=== PATIENT | male | born 1990 | race Caucasian/White ===

== ENCOUNTER 2023-01-09 00:31 | Day surgery (SDC) | payer BC, SELFPAY ==
[2022-12-29 08:51] VITALS: BMI 27.2
[2023-01-09 06:40] VITALS: BP 120/72; PULSE 60; RESP 18; TEMP 36; O2SAT 99
[2023-01-09] MEDS: LACTATED RINGERS 1,000 ML 150 ML IV CONT (06:43)
--- NOTE | 2023-01-09 07:34 | P.PNAN_ITS ---
Anes - Initial Pre Proc Eval Procedure: Operation Date: 01/09/23 08:00 Proposed Procedures p Colonoscopy - Matheus Rizo MD Date/Time: 01/09/23 07:34 Surgeon: Matheus Rizo MD Pre Op Diagnosis: ulcerative Colitis Patient Data Age: 32 Gender: M Height: 1.8 m Weight: 89.9 kg Last Vital Signs Temp 96.8 F L 01/09/23 06:40 Pulse 60 01/09/23 06:40 Resp 18 01/09/23 06:40 BP 120/72 01/09/23 06:40 Pulse Ox 99 01/09/23 06:40 O2 Del Method Room Air 01/09/23 06:40 Allergies Allergy/AdvReac Type Severity Reaction Status Date / Time No Known Allergies Allergy Verified 01/09/23 06:40 Home Medications Medication Instructions Recorded Confirmed Type escitalopram oxalate 5 mg tablet 5 mg PO DAILY #90 tabs 12/07/22 01/09/23 Rx cetirizine 10 mg tablet (Zyrtec) 10 mg PO DAILY 12/29/22 01/09/23 History Patient hx anesthesia problems: none Family hx anesthesia problems: none Results Review: All pre-operative results and documents have been reviewed as part of the pre- operative evaluation. [facility] Family History Family History Father Heart disease Hypertension Diabetes mellitus Social History Social History Smoking status: Never smoker Alcohol intake: current Alcohol use details: 1-2 drinks monthly Substance use: never Substance use type: does not use Lack of Transportation: No Lack of Food: Never True Current Housing: I Have Housing Concerned About Future Housing: No Difficulty Paying Gas/Electric Bills: No Difficulty Paying for Meds: No Currently Unemployed: No Difficulty w/ Childcare or Family Care: No Living arrangements: with family Occupation/Education: occupation 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 [employer] Gender identity (if verbalized by the patient): Male Sexual Orientation (if Verbalized by the Patient): Straight or Heterosexual Spiritual care concerns: No Agree to blood products: Yes Anes - Eval Final PreProcedure Day of Procedure 01/09/23 07:34 Patient weight: normal Heart: regular rate and rhythm Lungs: clear to auscultation Airway: Mallampati scale class II Neurological: alert and oriented Last oral intake: >/= 8 hours ASA classification: II Emergent: no Anesthetic plan: proceed Anesthesia type and monitoring: general GIVS and standard monitoring Results Review: All pre-operative results and documents have been reviewed as part of the pre- operative evaluation. Informed Consent: The patient's anesthetic plan and its attendant risks and benefits were discussed with the patient/family/POA. Questions were solicited and answers provided to the satisfaction of the patient/family/POA.
--- NOTE | 2023-01-09 07:45 | PM.HPGS ---
History of Present Illness History of Present Illness Consent: Risks, benefits, and alternatives have been discussed and questions answered. Patient agrees to proceed with procedure. Chief complaint: ulcerative Colitis Narrative: Deshaun Verdugo is a 32 year old male here for colonoscopy, diagnosed with mod-severe left sided UC at 17 yo and was symptomatic for 2-3 years, he used briefly steroids and then lialda, had repeat colonoscopy about 3 years afterward and told that was completely normal and on remission, he has not been on any medication since. No new issues since last visit. Review of Systems Constitutional: Constitutional: Denies headache(s) and Denies weakness Eyes: Eyes: Denies blurry vision ENT: Reports Normal hearing present, Denies headache(s) and Denies neck pain Cardiovascular: Cardiovascular: Denies chest pain and Denies dyspnea Respiratory: Respiratory: Denies dyspnea Gastrointestinal: Gastrointestinal: Reports no additional gastrointestinal complaints Genitourinary: Genitourinary: Denies dysuria Musculoskeletal: Musculoskeletal: Denies neck pain Integumentary/Breasts: Skin/Breast: Denies dry skin Neurologic: Reports Normal hearing present, Denies headache(s) and Denies weakness Psychiatric: Psychiatric: Denies anxiety Endocrine: Endocrine: Denies change in body appearance Hematologic/Lymphatic: Hematologic/Lymphatic: Denies easy bleeding Allergic/Immunologic: Allergic/Immunologic: Denies urticaria PMF Family History Family History Father Heart disease Hypertension Diabetes mellitus Social History Social History Smoking status: Never smoker Alcohol intake: current Alcohol use details: 1-2 drinks monthly Substance use: never Substance use type: does not use Lack of Transportation: No Lack of Food: Never True Current Housing: I Have Housing Concerned About Future Housing: No Difficulty Paying Gas/Electric Bills: No Difficulty Paying for Meds: No Currently Unemployed: No Difficulty w/ Childcare or Family Care: No Living arrangements: with family Occupation/Education: occupation 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[employer] Gender identity (if verbalized by the patient): Male Sexual Orientation (if Verbalized by the Patient): Straight or Heterosexual Spiritual care concerns: No Agree to blood products: Yes Meds Home Medications and Allergies Home Medications Medication Instructions Recorded Confirmed Type escitalopram oxalate 5 mg tablet 5 mg PO DAILY #90 tabs 12/07/22 01/09/23 Rx cetirizine 10 mg tablet (Zyrtec) 10 mg PO DAILY 12/29/22 01/09/23 History Allergies Allergy/AdvReac Type Severity Reaction Status Date / Time No Known Allergies Allergy Verified 01/09/23 06:40 Vital Signs Vital Signs - 24 hr 01/09/23 06:40 Temperature 96.8 F L Pulse Rate 60 Respiratory Rate 18 Blood Pressure 120/72 Pulse Oximetry 99 Oxygen Delivery Room Air Exam Const: General: comfortable and no acute distress HENMT: Face/Nose/Sinus: Normal nares present Eyes: General: appearance normal, both eyes and all related structures Neck: Neck: no JVD Resp: Auscultation: clear to auscultation bilaterally Cardio: Rate: regular rate Rhythm: regular rhythm GI: Inspection: non-distended GI Palp: Yes Soft to palpation Skin: General skin exam: normal color Neuro: General: gait normal Speech: normal speech Extrem: General: normal to inspection Psych: Mental Status: mental status grossly normal Assessment and Plan Assessment and plan (1) Ulcerative colitis in remission: Code(s): K51.90 - Ulcerative colitis, unspecified, without complications Status: Acute Assessment and Plan: colonoscopy with random bx asymptomatic
[2023-01-09 08:09] VITALS: BP 106/67; PULSE 74; RESP 23; O2SAT 97
[2023-01-09 08:19] VITALS: BP 107/74; PULSE 65; RESP 16; O2SAT 98
[2023-01-09 08:29] VITALS: BP 117/75; PULSE 63; RESP 18; O2SAT 100
== END 2023-01-09 08:32 | disposition home or self-care (01) ==
PROVIDERS: PCP Family Medicine; Visit Provider Internal Medicine Gastroenterology
PROC: 0DJD8ZZ Inspection of Lower Intestinal Tract, Via Natural or Artificial Opening Endoscopic (ICD-10-PCS; CPT 45378; principal; 2023-01-09 08:00)
DX: K51.90 Ulcerative colitis, unspecified, without complications (principal); K64.8 Other hemorrhoids
CPT/HCPCS: 45380; 88305; J2704; J7120

== ENCOUNTER 2023-03-02 08:53 | Observation (INO) | payer BC, SELFPAY ==
[2023-03-02] VITALS (39 sets, daily range): BP systolic 109–137; BP diastolic 66–91; PULSE 63–96; RESP 10–28; TEMP 36.2–37.2; O2SAT 92–100; BMI 27.9
--- NOTE | ~2023-03-02 | CT_ITS ---
EXAMINATION: CTA chest PE protocol DATE: 03/02/2023 10:57 CDT INDICATION: Chest pain and shortness of breath TECHNIQUE: Computed tomographic angiography (CTA) of the chest was performed with 100 mL Omnipaque-35 0 intravenous contrast. The dose-length product was 442.57 mGy-cm. Maximum intensity projection 3D-re constructions of the aorta and other arteries were constructed by the technologist on a separate work station. COMPARISON: Chest x-ray dated 03/02/2023. FINDINGS: Study is technically adequate. There is pulmonary embolism of right lower lobe segmental an d subsegmental pulmonary arteries. There is contiguous airspace consolidation. There is small right p leural effusion. Heart size is normal. There are nonenlarged mediastinal lymph nodes, likely reactive . No suspicious pulmonary nodules or masses. No pneumothorax. No endobronchial lesions. No acute osse ous abnormality. No focal lytic or blastic lesions. IMPRESSION: 1. Pulmonary embolism right lower lobe segmental and subsegmental pulmonary arteries, small thrombus burden. 2: Right basilar airspace consolidation which may represent a combination of atelectasis and/or pneu monia. 3: Small right pleural effusion with associated pleural thickening. Reviewed, dictated and finalized at location L. IMPRESSION: 1. Pulmonary embolism right lower lobe segmental and subsegmental pulmonary art eries, small thrombus burden. 2: Right basilar airspace consolidation which may represent a combination of a telectasis and/or pneumonia. 3: Small right pleural effusion with associated pleural thickening.
--- NOTE | ~2023-03-02 | US_ITS ---
Limited Abdominal Sonogram: Real-time sonographic imaging of the right upper quadrant was performed. Clinical History: Elevated bilirubin Findings: The liver appears normal with no evidence of bile duct dilatation. There is a 2.4 x 1.5 x 2.4 cm hyperechoic mass in the right hepatic lobe. Main portal vein demonstrates normal direction of flow. The gallbladder is well distended, and appears normal with no evidence of gallstone or wall thi ckening. The common bile duct measures 5 mm. The visualized pancreas, aorta, and IVC are unremarkabl e. Impression: 2.4 x 1.4 x 2.4 cm hyperechoic left hepatic lobe mass, most likely hemangioma, which correlates with subtle lesion seen on prior CT dated 03/02/2023. Reviewed, dictated and finalized at [facility]. Impression: 2.4 x 1.4 x 2.4 cm hyperechoic left hepatic lobe mass, most likely hemangioma, which correlates with subtle lesion seen on prior CT dated 03/02/2023.
--- NOTE | ~2023-03-02 | XR_ITS ---
EXAMINATION: XR chest 2V DATE: 03/02/2023 09:15 INDICATION: Right-sided chest pain, back pain and new onset dyspnea 2 hour duration TECHNIQUE: PA and lateral views of the chest were obtained. COMPARISON: None FINDINGS: Linear discoid atelectasis or scarring at the lateral left lower lung zone. There is a nodular opacit y projecting over the right hemidiaphragm and lower thoracic spine on the lateral projection. No pulm onary edema, pleural effusion or pneumothorax. The cardiomediastinal silhouette is normal. IMPRESSION: 1. Indeterminate nodular opacity projecting over the lower lungs on the lateral projection. Would rec ommend further evaluation with chest CT. Reviewed, dictated and finalized at location A. IMPRESSION: 1. Indeterminate nodular opacity projecting over the lower lungs on the lateral projection. Would recommend further evaluation with chest CT.
--- NOTE | ~2023-03-02 | US_ITS ---
Duplex Sonography of the bilateral lower extremities: Indication: Pulmonary embolus Sagittal and transverse B-mode images as well as color-flow imaging were performed on the right and l eft femoral and popliteal veins. B-mode examination was done without and with compression in the tra nsverse plane. There is good visualization of the bilateral common femoral, proximal profunda femora l, superficial femoral, greater saphenous, and popliteal veins. Normal flow was seen on color-flow im aging. Normal compressibility was demonstrated. Bilateral posterior tibial and peroneal veins are pa tent. Impression: No evidence of deep vein thrombosis involving either lower extremity. Reviewed, dictated and finalized at location M. Impression: No evidence of deep vein thrombosis involving either lower extremit y.
--- NOTE | 2023-03-02 08:58 | ECG_ITS ---
Measurements Intervals [place] Rate: 69 P: 69 [place]: 182 QRS: 71 QRSD: 158 T: 7 QT: 401 QTc: 432 Interpretive Statements SINUS RHYTHM POSSIBLE LEFT ATRIAL ENLARGEMENT [-0.1mV P WAVE IN V1/V2] INDETERMINATE AXIS RIGHT BUNDLE BRANCH BLOCK [120+ ms QRS DURATION, UPRIGHT V1, 40+ ms S IN I/aVL/V4/V5/V6] NO PREVIOUS ECG AVAILABLE FOR COMPARISON Electronically Signed On 03-02-2023 13:32:45 CDT by Paola Harden M.D.
[2023-03-02] MEDS: MORPHINE SULFATE (*CRX) 4 MG/ML INJ IV PUSH ×2 (09:42→14:29)
[2023-03-02 09:45] LABS: Basophils Absolute Auto 0.1 K/mm3 (0.0-0.1); Basophils Percent Auto 0.6 % (0.2-1.2); Eosinophils Absolute Auto 0.1 K/mm3 (0-0.3); Eosinophils Percent Auto 1.3 % (0-4.4); Hematocrit 46.1 % (42.0-52.0); Hemoglobin 15.8 g/dL (14.0-18.0); Immature Granulocyte Absolute 0.04 K/mm3 (0.00-0.031); Immature Granulocyte Percent A 0.4 % (0-0.5); Lymphocytes Percent Auto 22.5 % (18.3-44.2); Mean Corpuscular HGB Conc 34.3 g/dl (32-36); Mean Corpuscular Volume 90.4 fl (80-100); Mean Platelet Volume 8.3 fl (7.4-10.4); Monocytes Absolute Auto 1.2 K/mm3 (0.1-0.6); Monocytes Percent Auto 11.9 % (2.6-8.5); Neutrophils Absolute Auto 6.5 K/mm3 (1.3-6.7); Neutrophils Percent Auto 63.3 % (45.5-73.1); Platelet Count Result 313 k/mm3 (150-375); Red Cell Distribution Width 11.8 % (11.5-14.5); White Blood Count 10.2 K/mm3 (4.5-10.0)
[2023-03-02 09:57] LABS: Partial Thromboplastin Time 27.4 SECONDS (22.3-36.8); Prothrombin Time 13.8 Seconds (11.1-14.7)
[2023-03-02 09:59] LABS: Alanine Aminotransferase 27 U/L (6-50); Albumin Level 4.4 g/dL (3.5-5.1); Alkaline Phosphatase 78 U/L (38-126); Anion Gap 5 mmol/L (8-16); Aspartate Amino Transferase 25 U/L (17-59); Bilirubin,Total 1.6 mg/dL (0.2-1.3); Blood Urea Nitrogen 13 mg/dL (9-20); Calcium 8.7 mg/dL (8.4-10.2); Carbon Dioxide 31 mmol/L (22-30); Chloride 102 mmol/L (98-107); Estimated CRCL calculation 111 ml/min; Estimated Glomerular Filt Rate > 60; Glucose 89 mg/dL (65-110); Potassium 4.4 mmol/L (3.4-5.0); Sodium 138 mmol/L (137-145)
[2023-03-02 10:14] LABS: Troponin I < 0.012 ng/mL (0.000-0.034)
--- NOTE | 2023-03-02 10:17 | ED.SOB ---
HPI - SOB/Dyspnea General Chief Complaint: Shortness of Breath/Dyspnea Stated Complaint: dyspnea Time Seen by Provider: 03/02/23 09:15 History of Present Illness HPI Narrative: Patient is a 32-year-old male who presents ER with right-sided chest pain and shortness of breath. Reports he began having sharp pains in his right chest wall overnight and worsened this morning. [place] like he could not get it deep breath and could only use 1/5 of his lung. No runny nose or sore throat or productive cough. No hemoptysis. No leg swelling or cramping. Patient does report symptoms are worse when he takes a deep breath as well. No alleviating factors. Of note patient recently traveled to [place] 3 weeks ago and came back with COVID-19. No history of clotting disorder in him or family member. Related Data Allergies Allergy/AdvReac Type Severity Reaction Status Date / Time No Known Allergies Allergy Verified 01/09/23 06:40 Review of Systems Review of Systems: All systems reviewed & are unremarkable except as noted in HPI and below Constitutional: Constitutional: Denies chills and Denies fever(s) ENT: Denies nasal congestion and Denies sore throat Cardiovascular: Cardiovascular: Reports chest pain, Denies rapid heart rate and Denies radiating jaw, neck or arm pain Respiratory: Respiratory: Denies cough, Reports dyspnea and Denies wheezing Gastrointestinal: Gastrointestinal: Denies abdominal pain, Denies nausea and Denies vomiting Musculoskeletal: Musculoskeletal: Denies back pain, Denies myalgias, Denies arthralgias and Denies joint swelling PMFSH Past Medical History Medical History (Updated 03/02/23 @ 18:55 by Ahsan Abdalla MD) Anxiety Depression Ulcerative colitis Diagnosed at 17, in remission for at least [address] Rizo on 01/09/2023 showed internal hemorrhoids. Surgical History Surgical History (Updated 03/02/23 @ 15:44 by Joseline Kong PA-C) History of colonoscopy History of hand surgery Repair of right metacarpal fracture. Family History Family History Father Heart disease Hypertension Diabetes mellitus Social History Social History (Updated 03/02/23 @ 14:48 by Joseline Kong PA-C) Social History: Surrogate medical decision maker: Shae Verdugo, spouse. Code status: Full code. Smoking status: Never smoker Alcohol intake: current Drinks per week: 1 Alcohol use details: 1-2 drinks a month. Substance use: never Substance use type: does not use Lack of Transportation: No Lack of Food: Never True Current Housing: Decline to Answer Concerned About Future Housing: Decline to Answer Difficulty Paying Gas/Electric Bills: Decline to Answer Difficulty Paying for Meds: Decline to Answer Currently Unemployed: Decline to Answer Education: Don't Know Difficulty w/ Childcare or Family Care: Decline to Answer Living arrangements: with family Additional living arrangements comments: Lives with family in [place]. 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 Spiritual care concerns: No Agree to blood products: Yes Exam Narrative: GENERAL: Well-appearing, well-nourished, and in no acute distress. HEAD: Normocephalic, atraumatic. ENT: Mucous membranes moist. NECK: Supple. CHEST: Clear to auscultation. No respiratory distress. Visibly uncomfortable with deep breaths. HEART: Regular rate and rhythm. Normal peripheral pulses. ABDOMEN: Soft, nontender, nondistended. EXTREMITIES: Normal range of motion. No edema. SKIN: Warm, dry, no rash. NEURO: Alert and oriented x3. PSYCH: Normal mood and affect. Course Course Emergency Course: Patient educated on diagnosis and treatment plan. Admit to the hospitalist service. Placed on IV heparin. Patient felt to have atelectasis over pneumonia given no history of recent fe
[2023-03-02] MEDS: HEPARIN SODIUM 5,000 UNITS/ML VIAL 7500 UNITS IV PUSH (11:58)
[2023-03-02] MEDS: HEPARIN SOD/D5W 100 UNITS/ML 25,000 UNITS/250 ML BAG 15 UNITS IV CONT (11:59)
[2023-03-02] MEDS: HYDROcodone/acetaminophen (*CRX) 5-325 MG TABLET 1 TAB PO (13:45)
--- NOTE | 2023-03-02 14:18 | ADMGEN ---
This patient, Deshaun Verdugo, was admitted to Medical Room 345-01. Patient/family oriented to hospital policies and general routines including ID bracelet, bed and alarms, visiting hours, pain management, procedures, bathroom and other care routines, personal items, smoking policy, room service/diet, and visiting hours. Information on how to activate the Rapid Response Team has been discussed. Patient/Family are encouraged to report perceived risks to care and to ask questions if they do not understand what they are told or what they should do.
[2023-03-02] MEDS: ALBUTEROL SULFATE NEB 2.5 MG/3 ML INH (14:21)
[2023-03-02] MEDS: ONDANSETRON INJ 4 MG/2 ML VIAL IV PUSH (14:36)
--- NOTE | 2023-03-02 14:42 | PM.IMHP ---
H&P: HPI History of Present Illness Date/Time: 03/02/23 14:45 Chief Complaint: Shortness of breath. Narrative: This is a very pleasant 32-year-old male with history of ulcerative colitis, kidney stones, depression, and anxiety who presented to the emergency department via private vehicle from home for evaluation of shortness of breath. The patient provides the following history. Yesterday afternoon he lay down to take a nap with his daughter and upon waking he had discomfort on the right side of his chest, side, and mid to low back which he presumed was a muscle strain from how he was sleeping. He took ibuprofen which did not seem to help much. He did not sleep well, presumably due to the pain, and when he got up at 07:00 he reports the sudden onset shortness of breath associated with sharp and stabbing pain in the right lower ribs. CTA of the chest showed pulmonary emboli in the right lower lobe segmental and subsegmental pulmonary arteries with a small thrombus burden. Lower extremity venous Doppler ultrasounds were negative for DVT. With further questioning, he and his family traveled to [place] about 4 weeks ago where they went on a cruise. Shortly after returning home he had COVID but those symptoms have resolved. He has no personal history and to his knowledge no family history of venous thromboembolism although he does not know his mother's family history. In the ED he received a dose of morphine which helped the pain somewhat. He was started on heparin drip and is being admitted to the floor for further care. Shortly after arriving to the floor his pain intensified (rated 8-9/10) and he had associated nausea and sweats. He feels as though he cannot take in a deep breath and he is splinting to avoid pain on exam. He says this pain is worse than that he has experienced with kidney stones. Review of Systems Review of Systems: Twelve systems were reviewed. He had COVID about 3 weeks ago but has recuperated from that. Reports mild lightheadedness and dizziness with the onset of shortness of breath this morning. No exertional chest pain. He had some nausea with severe pleuritic pain as detailed above. No vomiting or diarrhea. He has not noticed any lower extremity edema, calf pain, or tenderness. He has been in remission from his ulcerative colitis for over 8 years and a surveillance colonoscopy in January 2023 was unremarkable aside for small internal hemorrhoids. He denies easy bruising and bleeding. Except as documented, all other systems were reviewed and are negative. [facility] Past Medical History Medical History (Updated 03/02/23 @ 15:47 by Joseline Kong PA-C) Anxiety Depression Ulcerative colitis Diagnosed at 17, in remission for at least [address] Rizo on 01/09/2023 showed internal hemorrhoids. Surgical History Surgical History (Updated 03/02/23 @ 15:44 by Joseline Kong PA-C) History of colonoscopy History of hand surgery Repair of right metacarpal fracture. Family History Family History Father Heart disease Hypertension Diabetes mellitus Social History Social History (Updated 03/02/23 @ 14:48 by Joseline Kong PA-C) Social History: Surrogate medical decision maker: Shae Kartik, spouse. Code status: Full code. Smoking status: Never smoker Alcohol intake: current Drinks per week: 1 Alcohol use details: 1-2 drinks a month. Substance use: never Substance use type: does not use Lack of Transportation: No Lack of Food: Never True Current Housing: Decline to Answer Concerned About Future Housing: Decline to Answer Difficulty Paying Gas/Electric Bills: Decline to Answer Difficulty Paying for Meds: Decline to Answer Currently Unemployed: Decline to Answer Education: Don't Know Difficulty w/ Childcare or Family Care: Decline to Answer Living arrangements: with family Additional living arrangements
[2023-03-02] MEDS: ALPRAZolam (*CRX) 0.25 MG TABLET PO ×2 (15:08→21:26)
[2023-03-02] MEDS: KETOROLAC 15 MG/ML VIAL (*BKC) IV PUSH (15:58)
[2023-03-02 18:15] LABS: Partial Thromboplastin Time 73.1 SECONDS (22.3-36.8)
[2023-03-02] MEDS: MORPHINE SULFATE (*CRX) 4 MG/ML INJ 2 MG IV PUSH (20:36)
[2023-03-02] MEDS: KETOROLAC 30 MG/ML VIAL (*BKC) IV PUSH (21:26)
[2023-03-03] VITALS (10 sets, daily range): BP systolic 115–131; BP diastolic 65–77; PULSE 74–95; RESP 16–20; TEMP 36.3–37.2; O2SAT 93–97
--- NOTE | 2023-03-03 | ECHO_ITS ---
Patient Info Name: Deshaun Verdugo Age: 32 years : 1990 Gender: Male Ht: 71 in Wt: 200 lbs BSA: 2.15 m2 HR: 85 bpm BP: 120 / 70 mmHg Heart Rhythm: Sinus Rhythm Technical Quality: Fair Exam Date: 03/03/2023 10:32 AM Exam Location: [facility] Pulmonary Patient Status: Inpatient Admit Date: 03/02/2023 Staff Ordering Physician: Joseline Kong PA-C Molding Machine Operator: Agnes Velazquez RDCS Attending Provider: Joselin Moreno MD Referring Physician: Dilan ANDERSON; Exam Type: CA echo doppler color flow Study Info Indications - PE Complete two-dimensional, color flow and Doppler transthoracic echocardiogram is performed. Summary 1. Complete two-dimensional, color flow and Doppler transthoracic echocardiogram is performed. 2. Left ventricular chamber dimension is normal. 3. Left ventricular systolic function is normal, estimated at 60-65%. 4. The left ventricular diastolic function is grade I diastolic dysfunction. 5. E/e' 8 is minimally elevated. 6. There is trace tricuspid valve regurgitation. 7. No pulmonary hypertension, estimated pulmonary arterial systolic pressure is 38 mmHg. 8. There is trace pulmonic regurgitation. Left Ventricle E/e' 8 is minimally elevated. Left ventricular chamber dimension is normal. Left ventricular systolic function is normal, estimated at 60-65%. The left ventricular diastolic function is grade I diastolic dysfunction. Right Ventricle Right ventricular systolic function is normal and with normal TAPSE 2.7 cm. Right ventricular chamber dimension is normal. Left Atria Left atrial chamber dimension is normal. Right Atria Right atrial chamber dimension is normal. Aortic Valve The aortic valve is trileaflet. There is no aortic valve stenosis. There is no aortic valve regurgitation. Pulmonic Valve There is trace pulmonic regurgitation. Mitral Valve There is no mitral valve stenosis. There is no mitral valve regurgitation. Tricuspid Valve There is trace tricuspid valve regurgitation. No pulmonary hypertension, estimated pulmonary arterial systolic pressure is 38 mmHg. Pericardium/Pleural There is no pericardial effusion. Inferior Vena Cava Normal inferior vena cava with >50% collapse upon inspiration consistent with normal right atrial pressure, 5 mmHg. Aorta The aortic root size at the sinus of Valsalva is normal. Left Ventricular Outflow Tract Name Value Normal LVOT 2D LVOT Diameter 2.0 cm LVOT Doppler LVOT Peak Gradient 6 mmHg LVOT Mean Gradient 3 mmHg LVOT VTI 20 cm LVOT VTI/AV VTI Ratio 0.9 LVOT Stroke Volume 64 ml LVOT CO 6.4 l/min LVOT CI 3.0 l/min/m2 Pulmonic Valve Name Value Normal RVOT Doppler RVOT Peak Gradient 3 mmHg PV Doppler -----
[2023-03-03 00:48] LABS: Partial Thromboplastin Time 76.8 SECONDS (22.3-36.8)
[2023-03-03] MEDS: HEPARIN SOD/D5W 100 UNITS/ML 25,000 UNITS/250 ML BAG 15 UNITS IV CONT (02:30)
[2023-03-03] MEDS: HYDROcodone/acetaminophen (*CRX) 5-325 MG TABLET 1 TAB PO (05:44)
[2023-03-03 07:20] LABS: Basophils Percent Auto 0.4 % (0.2-1.2); Eosinophils Absolute Auto 0.1 K/mm3 (0-0.3); Hematocrit 39.8 % (42.0-52.0); Hemoglobin 13.7 g/dL (14.0-18.0); Immature Granulocyte Absolute 0.04 K/mm3 (0.00-0.031); Immature Granulocyte Percent A 0.4 % (0-0.5); Lymphocytes Absolute Auto 1.89 K/mm3 (0.9-3.2); Lymphocytes Percent Auto 19.8 % (18.3-44.2); Mean Corpuscular HGB Conc 34.4 g/dl (32-36); Mean Corpuscular Hemoglobin 31.3 pg (26-34); Mean Corpuscular Volume 90.9 fl (80-100); Mean Platelet Volume 8.6 fl (7.4-10.4); Monocytes Percent Auto 10.1 % (2.6-8.5); Neutrophils Absolute Auto 6.5 K/mm3 (1.3-6.7); Neutrophils Percent Auto 68.3 % (45.5-73.1); Platelet Count Result 289 k/mm3 (150-375); Red Blood Count 4.38 M/mm3 (4.6-6.20); Red Cell Distribution Width 11.7 % (11.5-14.5); White Blood Count 9.5 K/mm3 (4.5-10.0)
[2023-03-03] MEDS: MORPHINE SULFATE (*CRX) 4 MG/ML INJ 2 MG IV PUSH ×3 (07:24→23:40)
[2023-03-03 07:29] LABS: Anion Gap 5 mmol/L (8-16); Blood Urea Nitrogen 14 mg/dL (9-20); Calcium 8.5 mg/dL (8.4-10.2); Carbon Dioxide 30 mmol/L (22-30); Chloride 100 mmol/L (98-107); Estimated CRCL calculation 108 ml/min; Estimated Glomerular Filt Rate > 60; Glucose 119 mg/dL (65-110); Potassium 3.8 mmol/L (3.4-5.0); Sodium 135 mmol/L (137-145)
[2023-03-03 07:32] LABS: Partial Thromboplastin Time 77.3 SECONDS (22.3-36.8)
[2023-03-03] MEDS: ESCITALOPRAM OXALATE 5 MG TABLET PO (09:08)
--- NOTE | 2023-03-03 15:45 | PM.IMPN ---
Progress Note: A&P Assessment and Plan (1) Pulmonary emboli: Code(s): I26.99 - Other pulmonary embolism without acute cor pulmonale Status: Acute Assessment and Plan: The patient presented to the emergency department today for evaluation of acute onset shortness of breath this morning in addition to right-sided discomfort since yesterday afternoon as per HPI. CTA of the chest showed pulmonary embolism in the right lower lobe segmental and subsegmental pulmonary arteries with a small thrombus burden. right basilar airspace consolidation which is likely atelectasis as he is noted to be taking shallow breaths and splinting due to the pain. Risk factors include recent [place] and COVID infection, both within the last 4 weeks. Discussed the importance of taking the breasts and sent of spirometry has been ordered. He is currently on heparin drip that will be transitioned to Eliquis. Care coordination consulted to preauthorize Eliquis Patient's of requiring IV pain control and discussed trying to wean off of this and transition to oral analgesics. Bilateral lower extremity ultrasound negative for DVT Echocardiogram revealing EF of 60 65%, grade 1 diastolic dysfunction and no pulmonary hypertension (2) Atelectasis: Code(s): J98.11 - Atelectasis Status: Acute Assessment and Plan: Likely due to shallow breathing. Patient given incentive spirometry. (3) Ulcerative colitis in remission: Code(s): K51.90 - Ulcerative colitis, unspecified, without complications Status: Chronic Assessment and Plan: Has been in remission for 8 years Subjective Date/time seen: 03/03/23 15:45 Interval history: Patient sitting up in bed with at bedside. Patient is moaning in pain and states that he cannot move 1 muscle without an excruciating amount of pain. He stated that he was doing just fine prior to his echocardiogram when he had a rollover only on his side he could hardly bear the amount of pain he was in in needed morphine immediately. Patient has constant 3/10 pain in his right lower chest and then sharp 10/10 pains in his low back and collar bone when he moves. Patient states he would not be able to undergo any more imaging due to being unable to move. He does have a history of kidney stones. Agreed to test his urine to see if possibly he has a kidney stone causing his low back pain. I suspect that his pain is from his PE but will investigate other avenues of pain. Review of Systems Review of Systems: All systems reviewed & are unremarkable except as noted in HPI and below Exam Narrative: GENERAL: Uncomfortable HENMT: moist mucous membranes EYES: EOM intact b/l NECK: no lymphadenopathy RESPIRATORY: Deferred due to being in too much pain to move CARDIO: RRR GI: soft, nontender, bowel sounds present SKIN: no rashes EXTREMITIES: no edema, redness or tenderness Objective Data Vital Signs Vital Signs: Vital Signs - 24 hr 03/02/23 16:00 03/02/23 20:07 03/02/23 20:00 Temperature 99.0 F Pulse Rate 86 89 Respiratory Rate 20 Blood Pressure 115/66 Pulse Oximetry 92 Oxygen Delivery Room Air 03/02/23 20:00 03/03/23 00:00 03/03/23 04:00 Temperature Pulse Rate 92 77 74 Respiratory Rate Blood Pressure Pulse Oximetry Oxygen Delivery 03/03/23 06:00 03/03/23 08:00 03/03/23 11:30 Temperature 98.9 F Pulse Rate 85 82 Respiratory Rate 20 Blood Pressure 120/70 Pulse Oximetry 93 97 Oxygen Delivery Room Air 03/03/23 12:00 Temperature Pulse Rate 82 Respiratory Rate Blood Pressure Pulse Oximetry Oxygen Delivery Intake/Output Intake/Output: Intake & Output 02/28/23 03/01/23 03/02/23 03/03/23 23:59 23:59 23:59 23:59 Intake Total 480 1230 Output Total 500 Balance 480 730 Meds/Results Medications: Active Medications Generic Name Dose Route Start Last Admin Trade Name Eduardoq [place]
[2023-03-03] MEDS: ACETAMINOPHEN 325 MG TABLET 650 MG PO ×2 (17:04→23:39)
[2023-03-03 17:29] LABS: Appearance Urine Clear (Clear); Bilirubin Urine Negative (Negative); Blood Urine Negative (Negative); Color Urine Yellow (Yellow); Glucose Urine UA Negative (Negative); Ketones Urine Negative (Negative); Leukocyte Esterase Ur Negative LEU/UL (Negative); Nitrate Urine Negative (Negative); Protein Urine Negative (Negative); Specific Grav Ur 1.011 (1.001-1.035); Urobilinogen Urine 0.2 mg/dL (<2.0); pH Urine 5.5 (5.0-9.0)
[2023-03-03 17:31] LABS: Add Urine Microscopic? NO
[2023-03-03] MEDS: APIXABAN 5 MG TABLET 10 MG PO (22:02)
[2023-03-04] VITALS (9 sets, daily range): BP systolic 123–125; BP diastolic 66–74; PULSE 79–100; RESP 13–18; TEMP 36.1–37.1; O2SAT 95–96
[2023-03-04 06:23] LABS: Basophils Percent Auto 0.3 % (0.2-1.2); Eosinophils Absolute Auto 0.1 K/mm3 (0-0.3); Eosinophils Percent Auto 1.4 % (0-4.4); Hematocrit 41.9 % (42.0-52.0); Hemoglobin 14.1 g/dL (14.0-18.0); Immature Granulocyte Absolute 0.08 K/mm3 (0.00-0.031); Immature Granulocyte Percent A 0.8 % (0-0.5); Lymphocytes Percent Auto 18.6 % (18.3-44.2); Mean Corpuscular HGB Conc 33.7 g/dl (32-36); Mean Corpuscular Volume 92.1 fl (80-100); Mean Platelet Volume 8.7 fl (7.4-10.4); Neutrophils Absolute Auto 7.1 K/mm3 (1.3-6.7); Neutrophils Percent Auto 68.9 % (45.5-73.1); Platelet Count Result 291 k/mm3 (150-375); Red Blood Count 4.55 M/mm3 (4.6-6.20); Red Cell Distribution Width 11.4 % (11.5-14.5); White Blood Count 10.2 K/mm3 (4.5-10.0)
[2023-03-04 06:35] LABS: Alanine Aminotransferase 46 U/L (6-50); Albumin Level 3.9 g/dL (3.5-5.1); Alkaline Phosphatase 85 U/L (38-126); Anion Gap 2 mmol/L (8-16); Aspartate Amino Transferase 30 U/L (17-59); Bilirubin,Total 1.8 mg/dL (0.2-1.3); Blood Urea Nitrogen 9 mg/dL (9-20); Calcium 8.5 mg/dL (8.4-10.2); Carbon Dioxide 32 mmol/L (22-30); Chloride 104 mmol/L (98-107); Estimated CRCL calculation 108 ml/min; Estimated Glomerular Filt Rate > 60; Glucose 102 mg/dL (65-110); Potassium 4.3 mmol/L (3.4-5.0); Sodium 138 mmol/L (137-145)
[2023-03-04] MEDS: ACETAMINOPHEN 325 MG TABLET 650 MG PO ×3 (06:44→17:01)
[2023-03-04] MEDS: APIXABAN 5 MG TABLET 10 MG PO ×2 (08:13→22:21)
[2023-03-04] MEDS: ESCITALOPRAM OXALATE 5 MG TABLET PO (08:14)
[2023-03-04] MEDS: CYCLOBENZAPRINE HCL 10 MG TABLET PO ×2 (13:06→22:21)
--- NOTE | 2023-03-04 13:58 | PM.IMPN ---
Progress Note: A&P Assessment and Plan (1) Pulmonary emboli: Code(s): I26.99 - Other pulmonary embolism without acute cor pulmonale Status: Acute Assessment and Plan: The patient presented to the emergency department today for evaluation of acute onset shortness of breath this morning in addition to right-sided discomfort since yesterday afternoon as per HPI. CTA of the chest showed pulmonary embolism in the right lower lobe segmental and subsegmental pulmonary arteries with a small thrombus burden. right basilar airspace consolidation which is likely atelectasis as he is noted to be taking shallow breaths and splinting due to the pain. Risk factors include recent [place] and COVID infection, both within the last 4 weeks. Discussed the importance of taking deep breaths and sent of spirometry has been ordered. He is currently on heparin drip that will be transitioned to Eliquis. Care coordination consulted to preauthorize Eliquis Patient's of requiring IV pain control and discussed trying to wean off of this and transition to oral analgesics. Bilateral lower extremity ultrasound negative for DVT Echocardiogram revealing EF of 60 65%, grade 1 diastolic dysfunction and no pulmonary hypertension (2) Atelectasis: Code(s): J98.11 - Atelectasis Status: Acute Assessment and Plan: Likely due to shallow breathing. Patient given incentive spirometry. (3) Ulcerative colitis in remission: Code(s): K51.90 - Ulcerative colitis, unspecified, without complications Status: Chronic Assessment and Plan: Has been in remission for 8 years Subjective Date/time seen: 03/04/23 13:58 Interval history: Patient states that he is still in a significant amount of pain. Patient describes his pain as starting just above his hip on the right side. He describes it as a spasm and stabbing pain. He denies pain shooting down his leg. A lot of his symptoms appear to be muscular. He does have point tenderness. Advice starting Flexeril and he was okay with this. Got a call from the nurse later in the day and stated that the patient is pain free after taking the Flexeril and is doing much much better. Review of Systems Review of Systems: All systems reviewed & are unremarkable except as noted in HPI and below Exam Narrative: GENERAL: Uncomfortable HENMT: moist mucous membranes EYES: EOM intact b/l NECK: no lymphadenopathy RESPIRATORY: Clear auscultation CARDIO: RRR GI: soft, nontender, bowel sounds present SKIN: no rashes EXTREMITIES: no edema, redness or tenderness Objective Data Vital Signs Vital Signs: Vital Signs - 24 hr 03/03/23 16:00 03/03/23 14:00 03/03/23 20:00 Temperature 97.4 F L Pulse Rate 94 95 91 Respiratory Rate 16 Blood Pressure 131/77 Pulse Oximetry 97 Oxygen Delivery Fraction of Inspired Oxygen 03/03/23 20:00 03/03/23 22:00 03/04/23 00:00 Temperature 97.9 F Pulse Rate 91 79 Respiratory Rate 18 Blood Pressure 115/65 Pulse Oximetry 96 Oxygen Delivery Room Air Fraction of Inspired Oxygen 03/04/23 04:00 03/04/23 06:00 03/04/23 08:00 Temperature 97.0 F L Pulse Rate 81 94 89 Respiratory Rate 18 Blood Pressure 123/73 Pulse Oximetry 95 Oxygen Delivery Fraction of Inspired Oxygen 03/04/23 08:00 03/04/23 12:00 Temperature Pulse Rate 93 Respiratory Rate Blood Pressure Pulse Oximetry 95 Oxygen Delivery Fraction of Inspired Oxygen 0.21 Intake/Output Intake/Output: Intake & Output 03/01/23 03/02/23 03/03/23 03/04/23 23:59 23:59 23:59 23:59 Intake Total 480 1730 1790 Output Total 2600 550 Balance 480 -870 1240 Meds/Results Medications: Active Medications Generic Name Dose Route Start Last Admin Trade Name Freq PRN Reason Stop Dose Admin Acetaminophen 650 mg 03/03/23 18:00 03/04/23 12:00 Acetaminophen 325 Mg Tablet PO 650 mg
[2023-03-04] MEDS: HYDROcodone/acetaminophen (*CRX) 5-325 MG TABLET 1 TAB PO (18:02)
--- NOTE | 2023-03-04 21:27 | PC.NURSE ---
Eliquis care notes provided to patient. All questions and concerns addressed at this time.
[2023-03-05] VITALS: PULSE 76
[2023-03-05 04:00] VITALS: PULSE 72
[2023-03-05] MEDS: CYCLOBENZAPRINE HCL 10 MG TABLET PO (05:54)
[2023-03-05] MEDS: ACETAMINOPHEN 325 MG TABLET 650 MG PO (05:56)
[2023-03-05 05:59] VITALS: BP 115/73; PULSE 73; RESP 14; TEMP 36.1; O2SAT 95
[2023-03-05 06:30] LABS: Basophils Absolute Auto 0.1 K/mm3 (0.0-0.1); Basophils Percent Auto 0.4 % (0.2-1.2); Eosinophils Absolute Auto 0.2 K/mm3 (0-0.3); Eosinophils Percent Auto 1.4 % (0-4.4); Hematocrit 43.2 % (42.0-52.0); Hemoglobin 14.4 g/dL (14.0-18.0); Immature Granulocyte Absolute 0.05 K/mm3 (0.00-0.031); Immature Granulocyte Percent A 0.4 % (0-0.5); Lymphocytes Absolute Auto 1.85 K/mm3 (0.9-3.2); Mean Corpuscular HGB Conc 33.3 g/dl (32-36); Mean Corpuscular Hemoglobin 30.6 pg (26-34); Mean Corpuscular Volume 91.9 fl (80-100); Mean Platelet Volume 8.6 fl (7.4-10.4); Monocytes Absolute Auto 0.9 K/mm3 (0.1-0.6); Monocytes Percent Auto 8.1 % (2.6-8.5); Neutrophils Absolute Auto 8.5 K/mm3 (1.3-6.7); Neutrophils Percent Auto 73.7 % (45.5-73.1); Platelet Count Result 331 k/mm3 (150-375); Red Cell Distribution Width 11.4 % (11.5-14.5); White Blood Count 11.6 K/mm3 (4.5-10.0)
[2023-03-05 06:39] LABS: Alanine Aminotransferase 47 U/L (6-50); Albumin Level 3.8 g/dL (3.5-5.1); Alkaline Phosphatase 96 U/L (38-126); Anion Gap 5 mmol/L (8-16); Aspartate Amino Transferase 25 U/L (17-59); Bilirubin,Total 1.2 mg/dL (0.2-1.3); Blood Urea Nitrogen 11 mg/dL (9-20); Carbon Dioxide 32 mmol/L (22-30); Chloride 101 mmol/L (98-107); Estimated CRCL calculation 98 ml/min; Estimated Glomerular Filt Rate > 60; Glucose 105 mg/dL (65-110); Potassium 4.1 mmol/L (3.4-5.0); Sodium 138 mmol/L (137-145)
[2023-03-05] MEDS: APIXABAN 5 MG TABLET 10 MG PO (07:55)
[2023-03-05] MEDS: ESCITALOPRAM OXALATE 5 MG TABLET PO (07:55)
[2023-03-05 08:00] VITALS: PULSE 69
--- NOTE | 2023-03-05 11:54 | PM.DS ---
DS: Admitting Diagnosis Discharge Date 03/05/23 Admitting Diagnosis Pulmonary emboli DS: Discharge Diagnosis Discharge Diagnosis (1) Pulmonary emboli: Code(s): I26.99 - Other pulmonary embolism without acute cor pulmonale Status: Acute Assessment and Plan: The patient presented to the emergency department today for evaluation of acute onset shortness of breath this morning in addition to right-sided discomfort since yesterday afternoon as per HPI. CTA of the chest showed pulmonary embolism in the right lower lobe segmental and subsegmental pulmonary arteries with a small thrombus burden. right basilar airspace consolidation which is likely atelectasis as he is noted to be taking shallow breaths and splinting due to the pain. Risk factors include recent [place] and COVID infection, both within the last 4 weeks. Discussed the importance of taking deep breaths and sent of spirometry has been ordered. He is currently on heparin drip that will be transitioned to Eliquis. Care coordination consulted to preauthorize Eliquis oral analgesics. Bilateral lower extremity ultrasound negative for DVT Echocardiogram revealing EF of 60 65%, grade 1 diastolic dysfunction and no pulmonary hypertension (2) Atelectasis: Code(s): J98.11 - Atelectasis Status: Acute Assessment and Plan: Likely due to shallow breathing. Patient given incentive spirometry. (3) Ulcerative colitis in remission: Code(s): K51.90 - Ulcerative colitis, unspecified, without complications Status: Chronic Assessment and Plan: Has been in remission for 8 years DS: Summary Hospital Course Hospital Course: This is a 32-year-old male with history of ulcerative colitis that has been in remission for 8 years, kidney stones, depression anxiety presented to the ED on 03/02/2023 for evaluation shortness of breath and chest pain. CT of the chest showed pulmonary emboli in the right lower lobe segmental and subsegmental pulmonary arteries with small thrombus burden. Lower extremity Doppler negative for DVT. Patient did have recent travel to [place] and went on a cruise and was a returned home he developed COVID-19 although the symptoms have since resolved. He was started on heparin drip. Echocardiogram revealed EF of 60 65% with grade 1 diastolic dysfunction. Care coordination consulted for Eliquis. Patient was able to afford cost. He was transitioned to Eliquis from heparin while in the hospital. Patient developed severe back pain that he describes similar to having kidney stones. Patient's urine was checked and negative for RBCs. This back pain continued and patient was unable to do much in and out of bed. Pain resolved without movement. Patient stated that it felt like muscle spasms. Pain was on his right low back just above his hip. Lot of patient's pain appeared to be muscular. Did a trial of Flexeril in this significantly improved patient's symptoms. Patient's labs and vital signs are stable and he is medically clear for discharge. Time Spent with Patient Time attestation: Total time spent providing and/or coordinating discharge services: Exam Narrative: GENERAL: Uncomfortable HENMT: moist mucous membranes EYES: EOM intact b/l NECK: no lymphadenopathy RESPIRATORY: Clear auscultation CARDIO: RRR GI: soft, nontender, bowel sounds present SKIN: no rashes EXTREMITIES: no edema, redness or tenderness DS: Data Data Completed and Pending Labs on day of discharge: Labs from last 24 hours 03/05/23 05:51 WBC 11.6 H RBC 4.70 Hgb 14.4 Hct 43.2 MCV 91.9 MCH 30.6 MCHC 33.3 RDW 11.4 L Plt Count 331 MPV 8.6 Immature Gran % (Auto) 0.4 Neut % (Auto) 73.7 H Lymph % (Auto) 16.0 L [place] % (Auto) 8.1 Eos % (Auto) 1.4 Baso % (Auto) 0.4 Lymph # (Auto) 1.85 [place] # (Auto) 0.9 H Eos # (Auto) 0.2 Baso # (Auto) 0.1 Abs Immat Gran (auto) 0.05 H Absolute N
== END 2023-03-05 12:20 | disposition home or self-care (01) ==
LOC: ANHED 09:50 → ANH3MEDSUR 13:53 → ANH3MED 14:31 → ANH3MEDSUR 03-07 08:35
PROVIDERS: Internal Medicine Critical Care Medicine; Physician Assistant; Admitting Provider Family Medicine; Emergency Provider Emergency Medicine; PCP Family Medicine; Visit Provider Internal Medicine
DX: I26.99 Other pulmonary embolism without acute cor pulmonale (principal); J98.11 Atelectasis; K51.90 Ulcerative colitis, unspecified, without complications; Z86.16 Personal history of COVID-19; J90 Pleural effusion, not elsewhere classified; E80.6 Other disorders of bilirubin metabolism; R16.0 Hepatomegaly, not elsewhere classified; I45.10 Unspecified right bundle-branch block; F41.9 Anxiety disorder, unspecified; F32.A Depression, unspecified; K64.8 Other hemorrhoids; F10.90 Alcohol use, unspecified, uncomplicated
CPT/HCPCS: 36415; 71046; 71275; 76705; 80048; 80053; 81003; 83735; 84484; 85025; 85610; 85730; 93005; 93306; 93970; 94640; 96365; 96366; 96375; 96376; 99285; A9270; G0378; J1644; J1885; J2270; J2405; Q9967

== ENCOUNTER 2023-04-05 09:50 | Outpatient (RCR) | payer BC, SELFPAY ==
--- NOTE | 2023-04-05 10:00 | PDONCCN ---
HPI - Date of Consult Date/Time: 04/05/23 10:00 Requesting Physician: Kasandra Millard MD Primary Care Provider: Jim Rivera, - Consult Narrative Reason for consult: PULMONARY EMBOLISM 03/02/23 POST COVID INFECTION Narrative: Deshaun Verdugo is a 32 year old male who was hospitalized for acute dyspnea on 03/02/23. A CTA chest performed 03/02/23 showed pulmonary embolism in right lower lobe. [place] of clot was noted as small and echocardiogram showed no right heart strain. patient reported COVID 19 infection 3 weeks prior to 03/02/23 admission. Patient was started on Eliquis and remains on eliquis. He is coming here to establish care with hematology and discuss duration of anticoagulation. Patient has ulcerative colitis which is in remission for past 8 years. Review of Systems - Review of Systems Patient states that he feels well. Chest pain and dyspnea has resolved. There is no cough or sputum production. Denies fever, chills, night sweats or weight loss. denies bleeding or bruising. He is back to baseline exercise routine and running/biking few times a week. He denies exercise intolerance. Denies dizziness, headache, falls. No hematochezia, melena or hematuria. No rash. No lymphadenopathy. [facility] Medical History: Medical History (Last Reviewed 03/06/23 @ 12:23 by Tyree Santamaria DO) Anxiety Depression Ulcerative colitis Diagnosed at 17, in remission for at least [address] Rizo on 01/09/2023 showed internal hemorrhoids. Surgical History: Surgical History (Last Reviewed 03/06/23 @ 12:23 by Tyree Santamaria DO) History of colonoscopy History of hand surgery Repair of right metacarpal fracture. Family History: Family History (Last Reviewed 03/06/23 @ 12:23 by Tyree Santamaria DO) Father Heart disease Hypertension Diabetes mellitus - Social History Social History: Social History (Last Reviewed 03/06/23 @ 12:23 by Tyree Santamaria DO) Alcohol Use: Alcohol intake: current Drinks per week: 1 Alcohol use details: 1-2 drinks a month. Substance Use: Substance use: never Substance use type: does not use Others: Spiritual care concerns: No Agree to blood products: Yes Living Arrangements: Living arrangements: with family Oppucation/Education: Occupation/Education: occupation Smoking Status: Smoking status: Never smoker Social Determinants of Health: Has the Lack of Transportation Kept You From Medical Appointments or From Getting Medications?: No Within the Past 12 Months, Were You Worried Whether Your Food Would Run Out Before You Got Money to Buy More?: Never True What is Your Housing Situation Today?: Decline to Answer Are You Worried That in the Next 2 Months, You May Not Have Your Own Housing to Live In?: Decline to Answer Do You Have Trouble Paying Your Heating Or Electricity Bill?: Decline to Answer Do You Have Trouble Paying For Medicines?: Decline to Answer Are You Currently Unemployed and Looking for Work?: Decline to Answer Highest Level of Education Completed: Don't Know Do You Have Trouble With Childcare or the Care of a Family Member?: Decline to Answer Exam - Exam HEENT: EOMI, PERRLA, sclera clear Neck: supple Lungs: clear to auscultation, normal air movement Heart: no murmurs, gallops, or rubs, regular rhythm, regular rate Abdomen: abdomen soft, non-distended, normal bowel sounds Extremities: normal pulses Integumentary: no abnormalities Neurological: normal gait, normal speech, normal muscle tone, strength at 5/5 X4, sensation intact Psychological: mental status NL, mood NL Meds Home Medications Medication Instructions Recorded Confirmed Type apixaban 5 mg tablet (Eliquis) 5 mg PO Q12HR #58 tabs 03/05/23 03/06/23 Rx apixaban 5 mg tablet 5 mg PO BID #60 tabs 03/06/23 03/06/23 Rx cyclobenzaprine 10 mg tablet 10 mg PO Q8HR #45 tabs 03/06/23
== END 2023-04-10 10:44 ==
LOC: AMCINF 09:50
PROVIDERS: PCP Family Medicine; Visit Provider Internal Medicine
DX: I26.99 Other pulmonary embolism without acute cor pulmonale (principal)
CPT/HCPCS: 99199